=== PATIENT | male | born 1950 | race Caucasian/White ===

== ENCOUNTER 2025-06-16 15:42 | Outpatient (CLI) | payer MEDICARE, SELFPAY ==
--- OUTSIDE RECORDS SUMMARY | 2025-06-16 15:45 | XMS_ITS | Clinical Summary ---
Author Organization [facility]: [address] Address [address] [place] [address] Care Team Providers Care Video Game Repair Technician Name Role Phone Andry Greene MD Primary Care Provider + Allergies No known active allergies Social History Tobacco Use Types Packs/Day Years Used Date Smoking Tobacco: Never Assessed Abuse Screen Answer Date Recorded Feels Unsafe at Home or Work/School no 05/16/2024 Feels Threatened by Someone no 05/04 Does Anyone Try to Keep You From Having Contact with Others or Doing Things Outside Your Home? no 05/16/2024 Physical Signs of Abuse Present no 05/16/2024 Housing Stability Answer Date Recorded Current Living Arrangements Not on file 06/03 Potentially Unsafe Housing Conditions Not on otis e 06/13/2023 Family and Community Support Answer Judd e Recorded Help with Day-to-Day Activities Not on file 06/13/2023 Lonely or Isolated Not on file 06/13/2023 Employment Answer Date Recorded Do you want help finding or keeping work or a marialuisa b? Not on file 06/13/2023 Disabilities Answer Date Recorded Concentrating, Remembering, or Making Decisions Difficulty Not on file 06/13/2023 Doing Errands Independently Difficulty Not on fi le 06/13/2023 Education Answer Date Recorded Help with school or training? Not on file Preferred Language Not on file 06/13/2023 Sex and Gender Information Value Date Recorded Sex Assigned at Not on file Legal Sex Male 12:29 AM EDT Gender Identity Not on file Sexual Orientation Not on file Last Filed Vital Signs Vital Sign Reading Time Taken Comments Blood Pressure 131/90 05/16/2024 3:30 PM EDT Pulse 83 05/16/2024 3:31 PM EDT Temperature 37.1 C (98.7 F) 05/16/2024 11:24 AM EDT Respiratory Rate 16 05/16/2024 11:24 AM EDT Oxygen Saturation 97% 05/16/2024 3:31 PM EDT Inhaled Oxygen Concentration - - Weight 90.7 kg (200 lb) 05/16/2024 11:24 AM EDT Height 177.8 cm (5' 10 ) 05/16/2024 11:24 AM EDT Body Mass Index 28.7 05/16/2024 11:24 AM EDT Plan of Treatment Health Maintenance Due Date Last Done Comments ANNUAL PHYSICAL 1950 HEPATITIS C SCREENING 1950 TDAP/TD VACCINES (1 - Tdap) 12/06/1970 COLOGUARD 12/06/1996 COLON CANCER SCREENING 5 YEA R SIGMOIDOSCOPY 12/06/1996 COLONOSCOPY 12/06/1996 CT COLONOGRAPHY 12/06/1996 FIT Testing (1 year) 12/06/1996 Pneumococcal Vaccine 50+ (1 of 1 - PCV) 12/06/2001 ZOSTER VACCINE (1 of 2) 12/06/2001 COLORECTAL CANCER SCREENING 04/28/2016 FECAL OCCULT BLOOD TEST 04/28/2016 04/28/2015 INFLUENZA VACCINE 04/03/2025 COVID-19 Vaccine ( season) 05/04/202508/2021, 11/23/2020 AAA SCREEN ONCE Completed 05/16/2024, 04/28/2015 Procedures Procedure Name Priority Date/Time Associated Diagnosis Comments CT ABDOMEN PELVIS W CONTRAST STAT 05/16/2024 2:37 PM EDT OCCULT BLOOD X 3, STOOL Routine 04/28/2015 3:00 AM EDT from Last 3 Months or Most Recently Relevant to Health Maintenance Results * CT Abdomen Pelvis With Contrast (05/16/2024 2:37 PM EDT) Anatomical Region Laterality Modality Abdomen, Pelvis N/A Computed Tomogra phy 05/16/2024 2:45 PM EDT Impressions 05/16/2024 2:53 PM EDT Impression: 1. No acute findings in the abdomen or pelvis. Electronically Signed: Julee Engel MD 05/16/2024 2:53 PM EDT Workstation ID: [id number] Narrative 05/16/2024 2:[address] ABDOMEN PELVIS W CONTRAST Date of Exam: 05/16/2024 2:29 PM EDT Indication: abd pain for a month. Comparison: CT abdomen and pelvis 04/28/2015 Technique: Axial CT images were obtained of the abdomen and pelvis following the uneventful intravenous administration of 85 mL Isovue-300. Reconstructed coronal and sagittal images were also obtained. Automated exposure control and iterative construction methods were used. Findings: LUNG BASES: Unremarkable without mass or infiltrate. LIVER: Unremarkable parenchyma without focal lesion. BILIARY/GALLBLADDER: Unremarkable SPLEEN: Unremarkable PANCREAS: Unremarkable ADRENAL: Unremarkable KIDNEYS: Unremarkable parenchyma with no solid mass identified. No obstruction. No calculus identified. GASTROINTESTINAL/MESENTERY: Evaluation of the gastrointestinal tract demonstrates scattered colonic diverticula without evidence for acute diverticulitis. The appendix is normal in caliber and contains gas. MESENTERIC VESSELS: Patent. AORTA/IVC: Normal caliber. RETROPERITONEUM/LYMPH NODES: Unremarkable REPRODUCTIVE: Unremarkable BLADDER: Unremarkable OSSEUS STRUCTURES: There is multilevel degenerative disc and facet disease. Procedure Note Julee Engel MD - 05/16/2024 CT ABDOMEN PELVIS W CONTRAST Date of Exam: 05/16/2024 2:29 PM EDT Indication: abd pain for a month. Comparison: CT abdomen and pelvis 04/28/2015 Technique: Axial CT images were obtained of the abdomen and pelvisfollowing the uneventful intravenous administration of 85 mL Isovue-300.Reconstructed coronal and sagittal images were also obtained. Automatedexposure control and iterative construction methods were used. Findings: LUNG BASES: Unremarkable without mass or infiltrate. LIVER: Unremarkable parenchyma without focal lesion. BILIARY/GALLBLADDER: Unremarkable SPLEEN: Unremarkable PANCREAS: Unremarkable ADRENAL: Unremarkable KIDNEYS: Unremarkable parenchyma with no solid mass identified. Noobstruction. No calculus identified. GASTROINTESTINAL/MESENTERY: Evaluation of the gastrointestinal tractdemonstrates scattered colonic diverticula without evidence for acutediverticulitis. The appendix is normal in caliber and contains gas. MESENTERIC VESSELS: Patent. AORTA/IVC: Normal caliber. RETROPERITONEUM/LYMPH NODES: Unremarkable REPRODUCTIVE: Unremarkable BLADDER: Unremarkable OSSEUS STRUCTURES: There is multilevel degenerative disc and facetdisease. IMPRESSION: Impression: 1. No acute findings in the abdomen or pelvis. Electronically Signed: Julee Engel MD 05/16/2024 2:53 PM EDT Workstation ID: [id number] [address] IMG [address] ORDERABLES Final Result * (ABNORMAL) Occult blood x 3, stool (04/28/2015 3:00 AM EDT) Fecal Occult Blood Positive(A) Negative [facility] OB Date 1 [id number] [facility] Fecal Occult Blood No specimen received. Negative , No specimen received. [facility] Fecal Occult Blood No specimen received. Negative , No specimen received. [facility] Stool specimen (specimen) 04/28/2015 3:00 AM EDT Narrative [facility] - 05/03/2015 7:58 AM EDT Specimen Type: Stool Jimi Thao MD BODY FLUIDS AND STOOLS OR DERABLES Final Result [facility] [address] [place] [address], from Last 3 Months or Most Recently Relevant to Health Maintenance Insurance MEDICARE A & B Care Teams Video Game Repair Technician Relationship Specialty Start Date End Date Andry Greene MD [address] [place] [id number] PCP - General Internal Medicine 05/16/24
--- OUTSIDE RECORDS SUMMARY | 2025-06-16 15:45 | XMS_ITS | Clinical Summary ---
Author Organization [facility] ([place], [place], [place], [place]) Address [address] [place] [address] Care Team Providers Care Sales Special Agent Name Role Phone Andry Greeen MD Primary Care Provider [phone] Allergies No known active allergies Medications No known medications Social History Tobacco Use Types Packs/Day Years Used Date Smoking Tobacco: Never Smokeless Tobacco: Never Tobacco Cessation:Counseling Given: Not Answered Alcohol Use Standard Drinks/Week Comments Never 0 (1 standard drink = 0.6 oz pur e alcohol) Family and Community Support Answer Judd e Recorded Help with Day to Day Activities Not on file 04/01/2024 Feeling Lonely or Isolated Not on file 04/01 Educational Attainment Answer Date Jamie rded Speak language other than Tristanian at home Not on file 04/01/2024 Want help with school or training Not on file 04/01/2024 Substance Use Answer Date Recorded Used prescription meds for non-medical reasons N ot on file 04/01/2024 Used illegal drugs past 12 months Not on file 04/01/2024 Sex and Gender Information Value Date Recorded Sex Assigned at Not on file Legal Sex Male 5:35 PM CDT Gender Identity Not on file Sexual Orientation Not on file Last Filed Vital Signs Vital Sign Reading Time Taken Comments Blood Pressure 100/69 11/10/2024 5:15 AM EDT Pulse 82 11/10/2024 5:15 AM EDT Temperature 36.7 C (98 F) 11/10/2024 2:51 AM EDT Respiratory Rate 18 11/10/2024 2:51 AM EDT Oxygen Saturation 92% 11/10/2024 5:15 AM EDT Inhaled Oxygen Concentration - - Weight 86.6 kg (191 lb) 11/10/2024 2:51 AM EDT Height 177.8 cm (5' 10 ) 11/10/2024 2:51 AM EDT Body Mass Index 27.41 11/10/2024 2:51 AM EDT Plan of Treatment Health Maintenance Due Date Last Done Comments CT Colonography 1950 Colonoscopy 1950 Colorectal Cancer Screening 1950 FOBT/FIT 1950 Fit-DNA (Cologuard) 1950 Sigmoidoscopy 1950 Depression Screening (12+) 1963 Hepatitis C Screening 12/06/1969 DTAP/TDAP/TD VACCINES (1 - Tdap) 12/06/1970 Pneumococcal 50+ years (1 of 2 - PCV) 12/06/1970 Shingles Vaccine (Zoster) (1 of 2) 12/06/2001 Respiratory Syncytial Virus (RSV) Adult or (1 - Risk 60-74 years 1-dose series) 2011 Medicare Initial AWV [id number] 05/05/2023 Falls Risk Screening 09/03/2024 COVID-19 VACCINE ( - 2024- season) 05/04/202508/2021, 11/23/2020 Influenza Vaccine (#1) 2025 Tobacco Cessation Counseling and Screening (12+) 11/10/2025 11/10/2024 Insurance MEDICARE PART A B Care Teams Sales Special Agent Relationship Specialty Start Date End Date Andry Greene MD [address] [place] [id number] PCP - General General Internal Medicine 04/15/24
--- OUTSIDE RECORDS SUMMARY | 2025-06-16 15:45 | XMS_ITS | Referral Summary ---
Author Organization [employer] ([place], [place], [place], [place]) Address [address] [place] [address] Care Team Providers Care Patient Attendant Name Role Phone Andry Greene MD Primary Care Provider [phone] Allergies No known active allergies Medications No [...] Date Jamie rded Speak language other than Greek at home Not on file 04/01/2024 Want [...] 11/10/2024 2:51 AM EDT Plan of Treatment Not on file Insurance MEDICARE PART A B Care Teams Patient Attendant Relationship Specialty Start Date End Date Andry Greene MD [address] [place] [phone] PCP - General General Internal Medicine 04/15/24
[2025-06-16 16:49] LABS: Hematocrit 42.8 % (42.0-52.0); Hemoglobin 13.9 g/dL (14.1-18.0); Immature Granulocytes % 0.3 %; Mean Corpuscular HGB Conc 32.5 g/dL (31.8-35.4); Mean Corpuscular Hemoglobin 29.0 pg (27.0-31.2); Mean Corpuscular Volume 89.2 fl (80-94); Nucleated Red Blood Cells % 0 %; Platelet Count 307 K/mm3 (142-424); Red Blood Count 4.80 M/mm3 (4.60-6.20); Red Cell Distribution Width-SD 43.1 fL; White Blood Count 9.2 K/mm3 (4.8-10.8)
[2025-06-16 18:12] LABS: Albumin Level 4.4 g/dl (3.5-5.0); Chloride 100 mmol/L (98-107); Sodium 137 mmol/L (136-145)
[2025-06-16 18:13] LABS: Potassium 5.0 mmoL/L (3.5-5.1)
[2025-06-16 18:15] LABS: Alanine Aminotransferase 43 U/L (12-78); Albumin/Globulin Ratio 1.6 (1.1-1.8); Alkaline Phosphatase 109 U/L (38-126); Anion Gap 13.0 mEq/L (5-15); Aspartate Amino Transferase 52 U/L (17-59); Bilirubin,Total 0.3 mg/dl (0.2-1.3); Blood Urea Nitrogen 20 mg/dl (9-20); Carbon Dioxide 29 mmol/L (22.0-30.0); Creatinine,Serum 0.90 mg/dl (0.66-1.25); Estimated Glomerular Filt Rate 83 ml/min (>60); GFR (African American) 100 ML/MIN (>60); Globulin 2.8 g/dL (1.3-3.2); Iron 62 ug/dL (49-181); Total Protein,Serum 7.2 g/dl (6.3-8.2)
[2025-06-16 18:16] LABS: Calcium 9.6 mg/dl (8.4-10.2); Glucose 90 mg/dl (74-100)
[2025-06-16 18:25] LABS: Total Iron Binding Capacity 362 ug/dL (261-462)
[2025-06-16 19:07] LABS: Ferritin 12.1 ng/ml (17.9-464)
== END 2025-06-16 23:59 | disposition home or self-care (01) ==
LOC: LAB 15:43
PROVIDERS: Visit Provider Internal Medicine Gastroenterology
DX: E83.119 Hemochromatosis, unspecified (principal); K74.69 Other cirrhosis of liver; B19.20 Unspecified viral hepatitis C without hepatic coma
CPT/HCPCS: 36415; 80053; 82105; 82728; 83540; 83550; 85025